=== PATIENT | female | born 1980 | race Caucasian/White ===

== ENCOUNTER → 2019-10-20 09:43 | Outpatient (CLI) | payer OTHER, SELFPAY ==
[2019-10-20 09:20] VITALS: BMI 26.6
[2019-10-20 12:13] LABS: Absolute Lymphocyte Count 1.74 X10^3/uL (0.83-4.51); Absolute Neutrophil Count 4.3 X10^3/uL (2.0-7.7); Basophil# 0.07 X10^3/uL; Eosinophil# 0.12 X10^3/uL; Eosinophils% 1.7 % (0-5); Hematocrit 41.2 % (37-47); Hemoglobin 13.9 g/dL (12.0-15.0); Lymphocyte # 1.74 X10^3/ul (4.0); Lymphocyte % 25.3 % (19-41); Mean Corp Hgb Conc 33.7 g/dL (32-36); Mean Corpuscular Hgb 31.2 pg (27.0-32.0); Mean Corpuscular Volume 92.4 fL (81-99); Mean Platelet Vol. 10.4 fl (6.2-12.0); Monocyte% 8.7 % (0-10); NRBC Flagged by Analyzer 0 % (0-5); Neutrophil # 4.33 X10^3/uL (2.7-7.7); Platelet Count 292 K/mm3 (150-450); RBC Distribution Width CV 11.7 % (11.6-14.6); RBC Distribution Width SD 39.6 fl (35.1-43.9); Red Blood Count 4.46 M/mm3 (4.2-5.4); White Blood Count 6.9 K/mm3 (4.4-11.0)
[2019-10-20 12:31] LABS: AST(SGOT) 28 U/L (15-37); Alanine Aminotransfer ALT/SGPT 41 U/L (13-56); Albumin, Serum 3.8 g/dL (3.2-5.0); Alkaline Phosphatase 54 U/L (45-117); Anion Gap 4 (5-15); BUN 15 mg/dL (7-18); BUN/Creat Ratio 18.6 RATIO (10-20); Chloride 108 mmol/L (98-107); Cholesterol 121 mg/dL (200); EST Glomerular Filtration Rate 83 mL/min (>60); Est Glom Filt Rate - Afr Amer 101 mL/min (>60); Globulin 3.8 g/dL (2.2-4.2); Glucose 85 mg/dL (74-106); High Density Lipoprotein 40 mg/dL; Potassium 4.1 mmol/L (3.5-5.1); Protein, Total 7.6 g/dL (6.4-8.2); Sodium Level 137 mmol/L (136-145); T4 Free Direct 0.93 ng/dL (0.76-1.46); Thyroid Stim Hormone (TSH) 1.37 uIU/mL (0.358-3.74); Triglycerides 135 mg/dL; Very Low Density Lipoprotein 27 mg/dL (5-40)
== END ==
PROVIDERS: PCP Internal Medicine; Visit Provider Internal Medicine
DX: R03.0 Elevated blood-pressure reading, without diagnosis of hypertension (principal); Z13.29 Encounter for screening for other suspected endocrine disorder
CPT/HCPCS: 36415; 80053; 80061; 84439; 84443; 85025

== ENCOUNTER 2020-06-21 08:30 | Outpatient (RCR) | payer OTHER, SELFPAY ==
[2020-05-31 14:07] VITALS: BMI 26.6
== END 2020-06-29 23:59 | disposition home or self-care (01) ==
LOC: NS 08:30
PROVIDERS: PCP Internal Medicine; Visit Provider Nurse Practitioner Family
DX: Z71.3 Dietary counseling and surveillance (principal); E66.9 Obesity, unspecified; Z68.26 Body mass index [BMI] 26.0-26.9, adult
CPT/HCPCS: 97802; 97803

== ENCOUNTER 2020-07-19 11:00 | Outpatient (RCR) | payer OTHER, SELFPAY ==
[2020-05-31 14:07] VITALS: BMI 26.6
== END 2020-07-30 23:59 ==
LOC: NS 11:00
PROVIDERS: PCP Internal Medicine; Visit Provider Nurse Practitioner Family
DX: Z71.3 Dietary counseling and surveillance (principal); E66.9 Obesity, unspecified; Z68.26 Body mass index [BMI] 26.0-26.9, adult
CPT/HCPCS: 97803

== ENCOUNTER 2020-08-16 12:59 | Outpatient (RCR) | payer OTHER, SELFPAY ==
[2020-05-31 14:07] VITALS: BMI 26.6
== END 2020-08-16 23:59 | disposition home or self-care (01) ==
LOC: NS 12:59
PROVIDERS: PCP Internal Medicine; Visit Provider Nurse Practitioner Family
DX: Z71.3 Dietary counseling and surveillance (principal); E66.9 Obesity, unspecified; Z68.26 Body mass index [BMI] 26.0-26.9, adult
CPT/HCPCS: 97803

== ENCOUNTER → 2022-03-12 | Outpatient (CLI) | payer OTHER, SELFPAY ==
[2022-03-12 12:12] LABS: Absolute Lymphocyte Count 1.84 X10^3/uL (0.83-4.51); Absolute Neutrophil Count 3.2 X10^3/uL (2.0-7.7); Basophil# 0.09 X10^3/uL; Basophil% 1.4 % (0-1); Eosinophil# 0.32 X10^3/uL; Eosinophils% 5.1 % (0-5); Hematocrit 39.9 % (37-47); Hemoglobin 13.6 g/dL (12.0-15.0); Lymphocyte # 1.84 X10^3/ul (0.83-4.51); Lymphocyte % 29.5 % (19-41); Mean Corp Hgb Conc 34.1 g/dL (32-36); Mean Corpuscular Hgb 31.5 pg (27.0-32.0); Mean Corpuscular Volume 92.4 fL (81-99); Mean Platelet Vol. 9.9 fl (6.2-12.0); Monocyte# 0.79 X10^3/uL; Monocyte% 12.7 % (0-10); NRBC Flagged by Analyzer 0 % (0-5); Neutrophil # 3.18 X10^3/uL (2.7-7.7); Platelet Count 315 K/mm3 (150-450); RBC Distribution Width CV 12.3 % (11.6-14.6); RBC Distribution Width SD 41.9 fl (35.1-43.9); Red Blood Count 4.32 M/mm3 (4.2-5.4); White Blood Count 6.2 K/mm3 (4.4-11.0)
[2022-03-12 12:32] LABS: AST(SGOT) 25 U/L (15-37); Alanine Aminotransfer ALT/SGPT 41 U/L (13-56); Albumin, Serum 3.5 g/dL (3.2-5.0); Alkaline Phosphatase 65 U/L (45-117); Anion Gap 5 (5-15); BUN 12 mg/dL (7-18); Calcium,Total 8.6 mg/dL (8.5-10.1); Chloride 109 mmol/L (98-107); Cholesterol 133 mg/dL (200); Creatinine, Serum 0.75 mg/dL (0.55-1.02); EST Glomerular Filtration Rate 89 mL/min (>60); Est Glom Filt Rate - Afr Amer 108 mL/min (>60); Globulin 3.5 g/dL (2.2-4.2); Glucose 97 mg/dL (74-106); High Density Lipoprotein 38 mg/dL; Potassium 4.1 mmol/L (3.5-5.1); Sodium Level 139 mmol/L (136-145); Thyroid Stim Hormone (TSH) 1.55 uIU/mL (0.358-3.74); Triglycerides 114 mg/dL; Very Low Density Lipoprotein 23 mg/dL (5-40)
== END | disposition home or self-care (01) ==
LOC: BIMLAB 09:02
PROVIDERS: PCP Internal Medicine; Referring Provider Nurse Practitioner Family; Visit Provider Nurse Practitioner Family
DX: Z00.00 Encounter for general adult medical examination without abnormal findings (principal)
CPT/HCPCS: 36415; 80053; 80061; 84443; 85025

== ENCOUNTER → 2022-10-26 | Outpatient (CLI) | payer OTHER, SELFPAY ==
--- NOTE | 2022-10-26 15:34 | MRI_ITS ---
EXAM: MR LEFT LOWER EXTREMITY WITHOUT INTRAVENOUS CONTRAST, FOOT CLINICAL INDICATION: PERONEAL TENDONITIS/TENOSYNOVITIS/PERENEAL TENDON TEAR TECHNIQUE: Multiplanar and multisequence MR images of the left foot without intravenous contrast. Magnetic field strength 1.5 T. This report was created using [employer] report generation technology. COMPARISON: None. FINDINGS: LIGAMENTS: MEDIAL COLLATERAL: Unremarkable. Intact. LATERAL COLLATERAL: Unremarkable. Intact. LISFRANC: Unremarkable. Intact. TENDONS: FLEXOR: Unremarkable. Intact. EXTENSOR: Unremarkable. Intact. PERONEAL: Unremarkable. Intact. TIBIALIS ANTERIOR: Unremarkable. Intact. TIBIALIS POSTERIOR: Unremarkable. Intact. MUSCLES: Unremarkable. No edema or myositis. FLUID: Unremarkable. No joint effusion. PLANTAR FASCIA: Unremarkable. Intact. BONES/JOINTS: Unremarkable. Normal forefoot alignment. No fracture. No bone marrow edema. No joint effusion. OTHER SOFT TISSUES: Unremarkable. MRI/Lower Ext/No Jt/w/o IMPRESSION: Unremarkable MRI of the left foot. Normal peroneal tendons. Electronically Signed: Pramod Rivera MD at 4:29 EST ,
== END | disposition home or self-care (01) ==
PROVIDERS: PCP Internal Medicine; Referring Provider Student in an Organized Health Care Education/Training Program; Visit Provider Student in an Organized Health Care Education/Training Program
DX: M76.72 Peroneal tendinitis, left leg (principal); M79.672 Pain in left foot
CPT/HCPCS: 73718

== ENCOUNTER 2023-08-13 14:57 | Emergency (ER) | payer OTHER, SELFPAY ==
[2023-08-13 14:58] VITALS: BP 143/97; PULSE 89; RESP 14; TEMP 35.9; O2SAT 99; BMI 42.5
--- NOTE | 2023-08-13 16:00 | VDLE_ITS ---
Reason For Study: pain Procedure LEFT This is a venous duplex using B-mode, color GSV is normal. flow and spectral Doppler. CFV is compressible, spontaneous, phasic, Exam performed portable in ED. competent, and demonstrates normal The exam was abbreviated due to the COVID 19 augmentation. protocol. FV is compressible, spontaneous, phasic, The exam was diagnostic. competent and demonstrates normal A preliminary report was called and/or faxed augmentation. to ED RN. POP V is compressible, spontaneous, phasic, competent and demonstrates normal augmentation. T/P Trunk is compressible. PTV is compressible. LT PerV is compressible. VL/Venous Duplex US, Unilateral Interpretation Summary Deep veins of the left lower extremity are patent and compressible segmentally. There is no evidence of left lower extremity deep vein thrombosis. The left great saphenous vein kenneth ears patent and compressible segmentally. Ordering Physician: Radha Omalley Performed By: Ole Frances RVT
[2023-08-13] MEDS: Ibuprofen 600 MG Tablet PO (16:05)
--- NOTE | 2023-08-13 16:05 | RAD_ITS ---
INDICATION: pain EXAMINATION/TECHNIQUE: X-RAY - LEFT XR Knee Complete 4 Views or More 4 VIEWS COMPARISON: FINDINGS: No acute fracture or dislocation. No destructive bone changes. Joint spaces are well-maintained. Normal alignment. Soft tissues are unremarkable. No radiopaque foreign body or soft tissue gas. RAD/Knee 4 or More Views IMPRESSION: Negative. Electronically Signed: Ana Hendrickson MD at 17:22 EST Reading Location ID and State: [id number] / Tel , Service support ,
--- NOTE | 2023-08-13 16:11 | ED.VIS.LOWEX ---
HPI History of Present Illness Chief Complaint: Lower Extremity Injury Informant: patient Narrative Narrative: Patient is a 43-year-old female with no significant past medical history presenting with atraumatic left knee pain and swelling. Patient states she walked into work feeling fine today. She was sitting at her desk about 45 minutes when she got up she noted her left knee felt a little stiff. She did not really think much of it and went to another meeting. She sat for about an hour but then when she got up notice that she was having increased pain behind her knee as well as some swelling in front of and superior of her knee. She denies any injury, popping sensation, twisting, buckling or any new activities. She not take anything for her symptoms prior to arrival. She denies any history of DVT or PE. Denies any systemic symptoms such as fever, chills, recent illnesses, nausea, vomiting or back pain. Denies any associated numbness or tingling. Denies a history of recent travel. Does not take any oral hormonal therapy/estrogen. No other complaints or concerns at this time. [facility] Medical History Preventative health correction Medications levonorgestrel 21 mcg/24 hours (8 yrs) 52 mg intrauterine device (Mirena) 1 ea IY X1 03/06/17 [History Last Taken Unknown] carboxymethylcellulose-citric acid 0.75 gram capsule (Plenity) 3 cap PO BID #540 caps 08/13/22 [Rx Last Taken Unknown] Allergy/AdvReac Type Severity Reaction Status Date / Time cephalexin [Cephalexin] Allergy Hives Verified 08/13/23 14:57 Family History Grandfather Diabetes Myocardial infarction CVA (cerebral vascular accident) Alcoholism Mother Myocardial infarction Hypertension Cancer melanoma Brother Hypertension Grandmother Thyroid disorder Heart disease Surgical History History of lumpectomy of left breast History of lumpectomy of right breast Hx of appendectomy Hx of cholecystectomy Social History Smoking Status: Never smoker alcohol intake: never substance use type: does not use what type of physical activity do you participate in: running and weight training frequency: 3-4 times per week ROS ROS ED Constitutional Constitutional ED: Denies chills or fever(s) Cardiovascular Cardiovascular: Denies chest pain Respiratory/Chest Respiratory/Chest: Denies dyspnea Gastrointestinal Gastrointestinal: Denies nausea or vomiting Musculoskeletal Musculoskeletal: Reports other Details: left knee pain and swelling ; Denies back pain Integumentary Denies rash Neurologic Neurologic: Denies headache(s), paresthesias or weakness Hematologic/Lymphatic Hematologic/Lymphatic: Denies easy bleeding or easy bruising EXAM Physical Exam Const Vital Signs: 08/13/23 14:58 Temperature 96.7 F L Temperature Source Temporal Pulse Rate 89 Respiratory Rate 14 Blood Pressure 143/97 H Blood Pressure Mean 112 Pulse Ox 99 Oxygen Delivery Method Room Air Positive well nourished and well developed General Appearance ED: well developed and NAD HEENT Reports moist mucous membranes normocephalic Neck full ROM and supple Chest Wall inspection of chest normal Resp normal respiratory effort and clear to auscultation bilaterally Cardio regular rate, regular rhythm and no murmurs Cardio Narrative: 2+ DP pulse Extremity Extremity Narrative: Normal extensor mechanism of the leg. No pinpoint tenderness or warmth overlying the joint. Compartments are soft. No palpable cords. No pain with palpation of the calf. No obvious deformity. There are some subtle edema noted to the anterior/medial aspect of the knee. No significant tenderness with range of motion specifically no short arc range of motion pain. No ligamental laxity appreciated with anterior and posterior stress as well as valgus and varus stress. Neuro oriented x3, moves all extremities and no sensory deficits noted Sensorium / Orientation: alert Motor Exam: Negative for general weakness Psych mental status grossly normal Skin no wounds MDM MDM MDM Narrative Medical decision making narrative: Patient is evaluated for atraumatic left knee pain, stiffness and swelling. She notes the swelling is mildly improved since she has been in the waiting room. She is neurovascular intact distally. Differential includes bursitis, DVT, atraumatic effusion, ligamentous or meniscal injury and less likely septic joints. Patient is given Motrin and x-ray of the knee as well as DVT study of the left lower extremity is obtained. On repeat evaluation patient has no progressive changes to her knee exam. X-ray reviewed by myself as well as radiology does not show any acute process. Venous duplex negative for DVT. Patient counseled that the cause of her symptoms is not clear however we will treat conservatively with NSAIDs, ice, elevation and Eliel wrap. Is given referral for orthopedics should she not have improvement. Counseled that given she is only had less than 24 hours of symptoms this could progress and if she develops overlying redness, fever or more severe symptoms she should return to emergency room. She verbalizes agreement understanding with this. Discharged home in stable condition. Radiography Diagnostic Testing: Clinical Impression(s) from Imaging Studies Knee X-Ray 08/13/23 16:05 IMPRESSION: Negative. Electronically Signed: Ana Hendrickson MD at 17:22 EST Reading Location ID and State: [id number] / Tel , Service support , Discharge Plan Triage Chief Complaint: Lower Extremity Injury ED Provider: Radha Omalley Dx/Rx/DC Orders Clinical Impression: Acute pain of left knee Instructions: ED Knee Pain of Uncertain Cause Prescriptions: No Action levonorgestrel [Mirena] 1 EACH intrauterine device 1 ea IY X1 Plenity 0.75 gram capsule 3 cap PO BID Qty: 540 1RF Rx Instructions: administer before lunch and evening meal/dinner Primary Care Provider: Julio C Camilo Referrals: Julio C Camilo MD [Primary Care Provider] - Faisal Caro DO [Med Staff - Active Staff] - 3-5 Days if not improving Disposition Disposition: Home, Self Care
== END 2023-08-13 18:00 | disposition home or self-care (01) ==
PROVIDERS: Emergency Provider Emergency Medicine; PCP Internal Medicine; Visit Provider Emergency Medicine
DX: M25.562 Pain in left knee (principal); M25.462 Effusion, left knee
CPT/HCPCS: 73564; 93971; 99282

== ENCOUNTER 2024-04-06 09:35 | Emergency (ER) | payer OTHER, SELFPAY ==
[2024-04-06 09:36] VITALS: BP 135/92; PULSE 89; RESP 16; TEMP 36.1; O2SAT 97; BMI 37.2
--- NOTE | 2024-04-06 09:45 | EDS_ITS ---
HPI HPI - GI History of Present Illness Chief Complaint: Nausea/Vomiting/Diarrhea Narrative Narrative: 44-year-old female past medical history of remote cholecystectomy and appendectomy presents with nausea, vomiting, and diarrhea that she has had for the last 5 days. Of note, she is on Wegovy for weight loss, and has been since December. Her last shot was on Saturday, 6 days ago, and she had already increased her dosing. Since then, she states that she has been sick with nausea, vomiting, diarrhea, and diffuse abdominal pain. She has a telehealth doctor that told her that even though she is on Zofran if she is having continued problems that she should be evaluated in the ED to rule out other things besides side effect from her medication. In the last 24 hours, she has had more diarrhea that is nonbloody, approximately 5-6 episodes of watery stool, it is only vomited once. She states she was able to eat yesterday at around 1 PM, but ended up vomiting at 2 AM, so it is not immediate. She does not have menstrual periods because she has an intrauterine device. [facility] Medical History Preventative health prison Medications ?Medication ?Instructions ?Recorded ?Last Taken ?Type levonorgestrel 21 mcg/24 hr (up to 1 ea IY X1 03/06/17 Unknown History 8 years) 52 mg intrauterine device (Mirena) carboxymethylcellulose-citric acid 3 cap PO BID #540 caps 08/13/22 Unknown Rx 0.75 gram capsule (Plenity) semaglutide (weight loss) 1 mg/0.5 mg subcut 04/06/24 Unknown History mL subcutaneous pen injector (Wegovy) Allergy/AdvReac Type Severity Reaction Status Date / Time cephalexin (Cephalexin) Allergy Hives Verified 04/06/24 09:37 Family History Grandfather Diabetes Myocardial infarction CVA (cerebral vascular accident) Alcoholism Mother Myocardial infarction Hypertension Cancer melanoma Brother Hypertension Grandmother Thyroid disorder Heart disease Surgical History History of lumpectomy of left breast History of lumpectomy of right breast Hx of cholecystectomy Hx of appendectomy Social History Smoking Status: Never smoker alcohol intake: never substance use type: does not use what type of physical activity do you participate in: running and weight training frequency: 3-4 times per week ROS ROS ED ROS Narrative Constitutional: No fever, no chills. HEENT: No sore throat. No neck pain. No loss of vision. No rhinorrhea. Cardiovascular: No chest pain. No palpitations. No pedal edema. Respiratory: No cough, no shortness of breath. Abdominal: Positive diffuse abdominal pain. Nausea, vomiting, diarrhea, all nonbloody for the last 5 days intermittently. Genitourinary: No dysuria. No hematuria. Musculoskeletal: No myalgias. No arthralgias. Neurologic: No headaches. No dizziness. No lightheadedness. Skin: No rash. No change in color. Psychiatric: No depression. No anxiety. EXAM Physical Exam Narrative Exam Narrative: Afebrile. Vital signs noted. HEENT: Normocephalic. Atraumatic. PERRL, EOMI. Neck soft and supple. No point tenderness or step off. Cardiovascular: Regular rate and rhythm. No murmurs, rubs, or gallops appreciated. Respiratory: No tachypnea. Lungs clear to auscultation bilaterally. Gastrointestinal: Abdomen soft, minimal diffuse tenderness, with normoactive bowel sounds. No rebound or guarding. Neurological: Awake. Alert. Nonfocal, nonlateralizing. Skin: No rash. Normal color. No pallor. Musculoskeletal: No pedal edema. Full range of motion extremities. Const Vital Signs: 04/06/24 09:36 04/06/24 11:35 Temperature 96.9 F L Temperature Source Temporal Pulse Rate 89 88 Respiratory Rate 16 18 Blood Pressure 135/92 H 120/84 H Blood Pressure Mean 106 96 Pulse Ox 97 98 Oxygen Delivery Method Room Air Room Air MDM MDM MDM Narrative Medical decision making narrative: In the differential diagnosis, with the use of Wegovy is medication side effect versus colitis versus diverticulitis versus partial small bowel obstruction. I do feel CT imaging is indicated to help rule out an acute process. She declined any antinausea medication currently. She was bolused normal saline 1 L intravenously. Although she has an IUD, serum test will be obtained to rule out ectopic . I reviewed her laboratory work and she has slight elevation in her WBC count to 13,000. I feel that this may be demargination from her nausea, vomiting, and diarrhea invited to be nonspecific, hemoglobin slightly hemoconcentrated at 15.7 with hematocrit of 45.7. Platelet count normal at 318. Electrolyte panel is grossly unremarkable, no dehydration with a BUN of 11 and creatinine 0.86, glucose appropriately elevated at 102. Lipase is normal at 57 so I doubt pancreatitis. LFTs are grossly unremarkable. I reviewed the radiology report of the CT of the abdomen and pelvis which shows no evidence of obstruction. While there are fluid-filled bowel loops, there is no evidence of distention so I doubt obstruction. Small amount of fluid in the cul-de-sac which may be physiologic. Upon repeat examination at approximately 1150, she states that she has essentially unchanged. I do feel this is probably more medication side effects. I feel she be discharged safely home with follow-up. Return instructions to the emergency department were reviewed. She was told to perhaps avoid the use of Wegovy prior to her vacation. She will touch base with her telehealth doctor. Patient is agreeable to the plan. Disposition is discharged home in stable condition. History & Record Review Discussion w/independent historian: Patient Lab Data Attestation: I reviewed the patient's lab results. Labs: Laboratory Results - last 24 hr 04/06/24 09:48 WBC 13.0 H RBC 5.08 Hgb 15.7 H Hct 45.7 MCV 90.0 MCH 30.9 MCHC 34.4 RDW Std Deviation 40.1 RDW Coeff of Abdulkadir 12.1 Plt Count 318 MPV 10.3 Immature Gran % (Auto) 0.400 Neut % (Auto) 57.8 Lymph % (Auto) 17.5 L [place] % (Auto) 8.5 Eos % (Auto) 15.3 H Baso % (Auto) 0.5 Absolute Neuts (auto) 7.5 Absolute Lymphs (auto) 2.27 Nucleated RBC % 0 Sodium 139 Potassium 3.6 Chloride 107 Carbon Dioxide 26.0 Anion Gap 6 BUN 11 Creatinine 0.86 Estim Creat Clear Calc 89.73 Est GFR (MDRD) Af Amer 92 Est GFR (MDRD) Non-Af 76 BUN/Creatinine Ratio 12.8 Glucose 102 Calcium 9.2 Total Bilirubin 0.80 AST 29 ALT 37 Alkaline Phosphatase 81 Total Protein 7.2 Albumin 3.6 Globulin 3.6 Albumin/Globulin Ratio 1.0 Lipase 57 Serum , Qual NEGATIVE Radiography Diagnostic Testing: Clinical Impression(s) from Imaging Studies Abdomen/Pelvis CT 04/06/24 09:45 IMPRESSION: Small amount of free fluid is seen in the cul-de-sac. Dominant follicle in the right ovary. IUD is seen within the endometrium. Status post cholecystectomy and appendectomy. Electronically Signed: Eduardo Tavares MD at 11:04 EDT , Discharge Plan Triage Chief Complaint: Nausea/Vomiting/Diarrhea ED Provider: Joshua Fowler Dx/Rx/DC Orders Clinical Impression: Abdominal pain, Nausea, vomiting, and diarrhea, Medication side effects Instructions: ED Abdominal Pain Unkn Cause Fem, ED Vomit Diarrhea Nonspec Adult Prescriptions: No Action levonorgestrel [Mirena] 1 EACH intrauterine device 1 ea IY X1 Wegovy 1 mg/0.5 mL pen injector SUBCUT Patient Comments: PLEASE SEE ATTACHED FOR DETAILED DIRECTIONS Plenity 0.75 gram capsule 3 cap PO BID Qty: 540 1RF Rx Instructions: administer before lunch and evening meal/dinner Primary Care Provider: Julio C Camilo Referrals: Julio C Camilo MD [Primary Care Provider] - As soon as possible Activity Restrictions/Additional Instructions: You may want to avoid continued use of Wegovy secondary to its side effects. Discussed this with your telehealth doctor. Return with increased pain, new or worsening symptoms. Print Language: Syriac Disposition Disposition: Home, Self Care
--- NOTE | 2024-04-06 09:45 | CT_ITS ---
STUDY: CT ABDOMEN AND PELVIS WITH CONTRAST REASON FOR EXAM: Female, 44 years old. 5 day history of nausea vomiting and diarrhea. History of prior bilateral breast lumpectomies. RADIATION DOSAGE (If Supplied By Facility): CTDIvol = ( 14.49 ) mGy, DLP = ( 1213.44 ) mGycm TECHNIQUE: Transaxial images were obtained from the dome of the diaphragm to the symphysis pubis without oral contrast. IV 100mL Isovue-300 was administered. Sagittal and coronal images were reconstructed. Individualized dose optimization techniques were used for this CT. COMPARISON: Comparison is made with prior study dated July 22, 2013. FINDINGS: The visualized lung bases are unremarkable. The visualized portions of the heart are within normal limits. There is decreased attenuation of the liver consistent with steatosis. The patient is status post cholecystectomy. Normal spleen. Normal pancreas. Normal bilateral adrenal glands. Normal right kidney. Normal left kidney. Normal visualized stomach. There are multiple nondistended fluid-filled small bowel loops. Gas is seen throughout the colon down to the rectum. Normal colon. There are surgical clips in the region of the appendix consistent with a prior appendectomy. Normal abdominal aorta. Normal inferior vena cava. Normal retroperitoneum. Normal urinary bladder. IUD is seen within the endometrium. Follicles are seen in the right ovary. Small amount of free fluid is seen in the cul-de-sac. This may be related to the patient''s menstrual phase. There is a small umbilical hernia containing fat. 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 CT/Abdomen/Pelvis W IV Cont ONLY IMPRESSION: Small amount of free fluid is seen in the cul-de-sac. Dominant follicle in the right ovary. IUD is seen within the endometrium. Status post cholecystectomy and appendectomy. Electronically Signed: Eduardo Tavares MD at 11:04 EDT ,
[2024-04-06] MEDS: 0.9% Normal Saline (1000mL) 1,000 ML 999 ML IV (09:50)
[2024-04-06 09:59] LABS: Absolute Lymphocyte Count 2.27 X10^3/uL (0.83-4.51); Absolute Neutrophil Count 7.5 X10^3/uL (2.0-7.7); Basophil# 0.06 X10^3/uL; Basophil% 0.5 % (0-1); Eosinophil# 1.98 X10^3/uL; Eosinophils% 15.3 % (0-5); Hematocrit 45.7 % (37-47); Hemoglobin 15.7 g/dL (12.0-15.0); Lymphocyte # 2.27 X10^3/ul (0.83-4.51); Lymphocyte % 17.5 % (19-41); Mean Corp Hgb Conc 34.4 g/dL (32-36); Mean Corpuscular Hgb 30.9 pg (27.0-32.0); Mean Platelet Vol. 10.3 fl (6.2-12.0); Monocyte% 8.5 % (0-10); NRBC Flagged by Analyzer 0 % (0-5); Neutrophil # 7.51 X10^3/uL (2.7-7.7); Neutrophil % 57.8 % (47-70); Platelet Count 318 K/mm3 (150-450); RBC Distribution Width CV 12.1 % (11.6-14.6); RBC Distribution Width SD 40.1 fl (35.1-43.9); Red Blood Count 5.08 M/mm3 (4.2-5.4)
[2024-04-06 10:23] LABS: AST(SGOT) 29 U/L (15-37); Alanine Aminotransfer ALT/SGPT 37 U/L (13-56); Albumin, Serum 3.6 g/dL (3.2-5.0); Alkaline Phosphatase 81 U/L (45-117); Anion Gap 6 (5-15); BUN 11 mg/dL (7-18); BUN/Creat Ratio 12.8 RATIO (10-20); Calcium,Total 9.2 mg/dL (8.5-10.1); Chloride 107 mmol/L (98-107); Creatinine, Serum 0.86 mg/dL (0.55-1.02); EST Glomerular Filtration Rate 76 mL/min (>60); Est Glom Filt Rate - Afr Amer 92 mL/min (>60); Estimated Creatinine Clearance 89.73 ml/min; Globulin 3.6 g/dL (2.2-4.2); Glucose 102 mg/dL (74-106); Internal QC Validated? YES +Cl - CLEAR BKGD; Lipase 57 U/L (13-75); Potassium 3.6 mmol/L (3.5-5.1); Pregnancy, Serum, hCG Quali. NEGATIVE Negative; Protein, Total 7.2 g/dL (6.4-8.2); Sodium Level 139 mmol/L (136-145)
[2024-04-06 11:35] VITALS: BP 120/84; PULSE 88; RESP 18; O2SAT 98
[2024-04-06 11:55] VITALS: BP 120/84; PULSE 74; RESP 16; TEMP 36.4; O2SAT 100
== END 2024-04-06 12:12 | disposition home or self-care (01) ==
PROVIDERS: Emergency Provider Emergency Medicine; PCP Internal Medicine; Visit Provider Emergency Medicine
DX: R11.2 Nausea with vomiting, unspecified (principal); R10.9 Unspecified abdominal pain; R19.7 Diarrhea, unspecified; K52.1 Toxic gastroenteritis and colitis; T38.3X5A Adverse effect of insulin and oral hypoglycemic [antidiabetic] drugs, initial encounter; Z90.49 Acquired absence of other specified parts of digestive tract
CPT/HCPCS: 74177; 80053; 83690; 84703; 85025; 96360; 99283; J7030; Q9967; A4216